=== PATIENT | female | born 1985 | race African-American/Black ===

== ENCOUNTER 2017-02-27 13:20 | Emergency (ER) | END 2017-02-27 20:09 | disposition home or self-care (01) ==

== ENCOUNTER 2017-10-13 23:05 | Emergency (ER) | END 2017-10-14 02:49 | disposition home or self-care (01) ==

== ENCOUNTER 2018-06-03 07:10 | Inpatient (IN) | payer OTHER ==
[~2018-06-03] VITALS: Ht 165.1 cm; Wt 60.0 kg
[~2018-06-03 07:10] MED LIST: EXCED PO; MECL12.574 PO; NAPR-985 PO
[2018-06-03 07:26] VITALS: Ht 165.1 cm; Wt 60.0 kg
[2018-06-03 07:28] VITALS: BP 119/76; PULSE 96; RESP 20
[2018-06-03] MEDS ORDERED: LACTATED RINGER'S 1,000 ML IV PRN (07:36)
--- NOTE | 2018-06-03 07:56 | TRIAGE ---
OB Triage Datetime Report Generated by CPN: 06/03/2018 07:56 Datetime: 06/03/2018 07:42 Stage of : OB Triage Maternal Assessment Level of Consciousness: Fully Conscious DTR's/Clonus: DTRs 2+ Headache: Denies Blurred Vision: No Nausea/Vomiting: Denies RUQ Epigastric Pain: Denies Facial Edema: None Labor Evaluation Frequency: 2-3 Monitor Mode: External Duration (sec)2399: 50-70 Quality: Mild Pattern: Normal: <= 5 Contractions in 10 Minutes Resting Tone [place]: Relaxed Heart Rate FHR Baseline Rate: 135 Monitor Mode: External US FHR Baseline Changes: No Baseline Change Variability: Moderate 6-25 bpm Accelerations: 15X15 Decelerations: None Category: Category I Pain Assessment Pain Scale: 4 Pain Presence: Intermittent Pain Type: Contraction Pain Location: Abdomen; Back Pain Goal: 5 Pain Relief Measures: Comfort Measures Membrane Status: Ruptured Membranes Rupture Method: Spontaneous Amniotic Fluid Color: Clear Amniotic Fluid Amount: Moderate Amniotic Fluid Odor: None Datetime: 06/03/2018 07:35 Comments: Dr. Spicer was informed of pt's arrival with c/o SROM since 0640 and uc's since 0600. VE 3-4/80/-2, keenan every 2-3 min. New order to adm pt to L_D on expected mtg, and to do an EF W and call him with the results. Datetime: 06/03/2018 07:24 Stage of : OB Triage Assessment Type: Triage Maternal Assessment Level of Consciousness: Fully Conscious DTR's/Clonus: DTRs 2+; No Clonus Headache: Denies Blurred Vision: No Respiratory Effort: Unlabored; Regular Rhythm; Equal Expansion Breath Sounds, Left: Clear and Equal Breath Sounds, Right: Clear and Equal Nausea/Vomiting: Denies RUQ Epigastric Pain: Denies Lower Extremities Edema: None Upper Extremities Edema: None Facial Edema: None Temperature Route: Axillary Fall Risk Assessment History of Falling: (0) No Secondary Diagnosis: (0) No Ambulatory Aid: (0) Bedrest/Nurse Assist IV Therapy: (0) No Gait: (0) Normal/Bedrest/Immobile Mental Status: (0) Oriented to Own Ability Fall Score: 0 Fall Risk Score Definition: No Risk: No action required Datetime: 06/03/2018 07:23 EGA: 39.1 Datetime: 06/03/2018 07:21 Vaginal Exam Dilatation (cms): 3.5 Effacement (%): 80 Station: -2 Exam By: Membrane Status: Ruptured Amniotic Fluid Color: Clear Amniotic Fluid Odor: None Datetime: 06/03/2018 07:10 Time of Arrival: 06/03/2018 07:10 Arrived By: Ambulatory Arrived From: Home Chief Complaint: UC'S and Leaking Movement: Present Contractions: Regular Time Contractions Began: 06/03/2018 06:00 Rupture of Membranes: Ruptured Vaginal Discharge: Present Recent Sexual Intercouse: Denies Abdominal Trauma: Not Applicable Patient Complaints: Contractions Initial Plan: NST, VE, EFW
[2018-06-03] MEDS ORDERED: CARBOPROST 250 MCG INJ IM PRN ×2 (08:00→12:30)
[2018-06-03] MEDS ORDERED: OXYTOCIN 30 UNITS/LR 500 ML IV PRN ×2 (08:00→12:30)
[2018-06-03] MEDS ORDERED: MISOPROSTOL 200 MCG TAB PR PRN ×2 (08:00→12:30)
[2018-06-03] MEDS ORDERED: BUTORPHANOL 2 MG INJ IV PRN (08:00)
[2018-06-03] MEDS ORDERED: LIDOCAINE 1% (MPF) 30 ML INJ INJ PRN (08:00)
[2018-06-03] MEDS ORDERED: IBUPROFEN 600 MG TAB PO PRN (08:00)
[2018-06-03] MEDS ORDERED: METHYLERGONOVINE 0.2 MG INJ IM PRN ×2 (08:00→12:30)
[2018-06-03] MEDS ORDERED: OXYTOCIN 30 UNITS/LR 500 ML IV SCH ×2 (08:00)
[2018-06-03] MEDS: LACTATED RINGER'S 1,000 ML IV SCH ×3 (08:22→11:35)
--- NOTE | 2018-06-03 08:45 | PREAC ---
Date/Time of Note Date/Time of Note DATE: 06/03/18 TIME: 08:44 Anesthesia Eval and Record Evaluation Time Pre-Procedure Interview DATE: 06/03/18 TIME: 08:44 Age 32 Sex female NPO: 8 hrs Preoperative diagnosis labor pain Planned procedure labor epidural Past Medical History Past Medical History: None Surgery & Anesthesia Issues No known issue Meds Anticoagulation: No Beta Brennan within 24 hr: No Reason Beta Brennan not given: Pt. not on B-Brennan Active Scripts Acetaminophen/Aspirin/Caffeine* (Excedrin*) 1 Tab Tab, 1 TAB PO Q6, #20 TAB Prov:LOGAN RUIZ PA-C 02/27/17 Meclizine Hcl* (Antivert*) 12.5 Mg Tab, 12.5 MG PO Q6H PRN for DIZZINESS, #20 TAB Prov:LOGAN RUIZC 02/27/17 Naproxen* (Naprosyn*) 500 Mg Tablet, 500 MG PO BID PRN for PAIN AND/OR INFLAMMATION, #30 TAB Prov:LOGAN RUIZC 02/27/17 Current Medications Lactated Ringer's 1,000 ml @ 125 mls/hr Q8H IV Last administered on 06/03/18at 08:22; Admin Dose 125 MLS/HR; Start 06/03/18 at 07:36 Butorphanol Tartrate (Stadol) 2 mg Q2H PRN IV .PAIN; Start 06/03/18 at 08:00 Lidocaine (Xylocaine 1% (Mpf)) 30 ml ONCE PRN INJ .EPISIOTOMY; Start 06/03/18 at 08:00 Oxytocin/Lactated Ringer's 500 ml @ 500 mls/hr ONCE POST IV ; Start 06/03/18 at 08:00 Oxytocin/Lactated Ringer's 500 ml @ 125 mls/hr POST IV ; Start 06/03/18 at 08:00 Ibuprofen (Motrin) 600 mg ONCE PRN PO .PAIN 1-5; Start 06/03/18 at 08:00 Lactated Ringer's 1,000 ml @ 2,000 mls/hr Q30M PRN IV .ANESTHESIA; Start 06/03/18 at 07:36 Oxytocin/Lactated Ringer's 500 ml @ 0 mls/hr ONCE PRN IV .VAGINAL BLEEDING; Start 06/03/18 at 08:00 Methylergonovine Maleate (Methergine) 0.2 mg ONCE PRN IM .VAGINAL BLEEDING; Start 06/03/18 at 08:00 Carboprost Tromethamine (Hemabate) 250 mcg ONCE PRN IM .VAGINAL BLEEDING; Start 06/03/18 at 08:00 Misoprostol (Cytotec) 1,000 mcg ONCE PRN [place] .VAGINAL BLEEDING; Start 06/03/18 at 08:00 Meds reviewed: Yes Allergies Coded Allergies: No Known Allergy (Unverified , 06/03/18) Allergies Reviewed: Yes Labs/Studies Labs Reviewed: Reviewed by anesthesiologist test: Positive Pre-procedure Exam Last vitals Vital Signs Date Temp Pulse Resp B/P (MAP) Pulse Ox O2 O2 Flow FiO2 Time Delivery Rate 06/03/18 97.6 96 20 119/76 Room Air 07:28 (90) Airway: Adequate mouth opening, Adequate thyromental dist Mallampati: Mallampati III Teeth: Normal Lung: Normal Heart: Normal ASA Physical Status ASA physical status: 2 Emergency: None Planned Anesthetic Neuraxial: Epidural Planned Pain Management Epidural, Parenteral pain med, Local by surgeon Pre-operative Attestations Prior to commencing anesthesia and surgery, the patient was re-evaluated, there was verification of: *The patient's identity *The results of appropriate recent lab work and preoperative vital signs *The above evaluation not changing prior to induction *Anesthetic plan, risk benefits, alternative and complications discussed with patient/family; questions answered; patient/family understands, accepts and wishes to proceed. LAURA CHAVEZ MD Jun 03, 2018 08:45
[2018-06-03] MEDS ORDERED: ONDANSETRON 4 MG INJ IV PRN ×2 (09:00→12:30)
[2018-06-03] MEDS ORDERED: NALOXONE (0.4 MG/ML) INJ IV PRN (09:00)
[2018-06-03] MEDS ORDERED: FENTAnyl 2MCG/ML-ROPIV 0.2% 100 ML BAG EPI SCH (09:00)
[2018-06-03] MEDS ORDERED: ZOLPIDEM 5 MG TAB PO PRN (09:00)
[2018-06-03] MEDS ORDERED: DIPHENHYDRAMINE 50 MG INJ IV PRN (09:00)
[2018-06-03] MEDS ORDERED: KETOROLAC 30 MG INJ IV PRN (09:00)
[2018-06-03] MEDS ORDERED: HYDROmorphONE 0.5 MG/0.5 ML SYG IV PRN ×2 (09:00)
--- NOTE | 2018-06-03 10:10 | PAC ---
Date/Time of Note Date/Time of Note DATE: 06/03/18 TIME: 10:10 Post-Anesthesia Notes Post-Anesthesia Note Last documented vital signs Vital Signs Date Temp Pulse Resp B/P (MAP) Pulse Ox O2 O2 Flow FiO2 Time Delivery Rate 06/03/18 97.6 96 20 119/76 Room Air 07:28 (90) Activity: WNL Respiratory function: WNL Cardiovascular function: WNL Mental status: Baseline Pain reasonably controlled: Yes Hydration appropriate: Yes Nausea/Vomiting absent: Yes LAURA CHAVEZ MD Jun 03, 2018 10:10
[2018-06-03] MEDS: OXYTOCIN 30 UNITS/LR 500 ML IV SCH ×2 (12:22→16:30)
--- NOTE | 2018-06-03 12:22 | LDN ---
Date/Time of Note Date/Time of Note DATE: 06/03/18 TIME: 12:21 Delivery Summary Weeks of Gestation 38 Placenta Delivered: Spontaneously Meconium: none Episiotomy: No Perineal laceration: 1 Laceration repair: 1st degree perineal laceration repair with 2-0 and 3-0 chromic Anesthesia type: Epidural Estimated blood loss: 200 Sponge & Needle done & correct: Yes All needle counts correct: Yes Any foreign bodies felt in the: No Infant Delivery Information Sex Infant Sex: female Apgars 1 Minute: 5 5 Minute: 8 Suctioning Nose & mouth suctioned at som: No Delee suction performed: No Umbilical Cord Umbilical cord with: 3 Vessels Cord presentations: nuchal cord Nuchal cord present X: 1 Cord Blood was obtained: Yes MEIR DIEGO MD Jun 03, 2018 12:22
[2018-06-03] MEDS ORDERED: NACL 0.9% 3 ML SYG IV SCH (12:30)
[2018-06-03] MEDS ORDERED: LANOLIN HPA 1 PKT TOP PRN (12:30)
[2018-06-03] MEDS ORDERED: OXYCODONE/ASPIRIN (4.88/325) TAB PO PRN ×2 (12:30)
[2018-06-03] MEDS ORDERED: BENZOCAINE 20% 56 ML SPRAY TOP PRN (12:30)
[2018-06-03] MEDS ORDERED: WITCH HAZEL/GLYCERIN PAD PR PRN (12:30)
--- NOTE | 2018-06-03 12:40 | PREOPHP ---
DATE OF ADMISSION: 06/03/2018 HISTORY OF PRESENT ILLNESS: Shanell Blanco is a 32-year-old 2, para 1, EDC 06/09/2018, intra uterine at term, presented to triage in labor. She reports of having regular contractions with spontaneous rupture of membranes. She declines any vaginal bleeding. Her care took pl [facility] at [facility]. PAST MEDICAL HISTORY: None. MEDICATIONS: vitamins. PAST SURGICAL HISTORY: None. OBSTETRICAL HISTORY: x1 vaginal delivery. GYNECOLOGIC HISTORY: 12, regular 3 to 4 days. Denies any sexually transmitted infections. Sexually active with 1 partner. SOCIAL HISTORY: Denies any smoking, drugs or alcohol. FAMILY HISTORY: None. REVIEW OF SYSTEMS: All within normal except history of present illness. PHYSICAL EXAMINATION: HEENT: Within normal. LUNGS: CTA bilateral. CARDIOVASCULAR: S1, S2, regular rhythm. ABDOMEN: Gravid, nontender. Negative CVA bilateral. EXTREMITIES: No calf tenderness. PELVIC: Vaginal exam on admission, 3 to 4 cm, 50%, -2 station, with spontaneous rupture of membranes . heart tracing category 1, toco regular contractions. ASSESSMENT: Intrauterine at term in labor. PLAN: Anticipated vaginal delivery. Dictated By: MEIR CRAWFORD/KAROLINA Conf#: [id number] DID#: [id number]
[2018-06-03 14:30] VITALS: BP 122/73; PULSE 80; RESP 18
[2018-06-03 16:00] VITALS: BP 115/77; PULSE 66; RESP 19
[2018-06-03] MEDS: IBUPROFEN 600 MG TAB PO SCH (17:31)
[2018-06-03 20:30] VITALS: BP 114/73; PULSE 68
[2018-06-03] MEDS: SENNA/DOCUSATE NA (8.6MG/50MG) TAB PO SCH (21:54)
[2018-06-04] MEDS: IBUPROFEN 600 MG TAB PO SCH ×5 (00:28→23:46)
[2018-06-04 04:00] VITALS: BP 112/72; PULSE 66; RESP 18
--- NOTE | 2018-06-04 07:42 | DS ---
Date/Time of Note Date/Time of Note DATE: 06/04/18 TIME: 07:41 Obstetrical Discharge Record Final Diagnosis Final Diagnosis: Term delivered Vaginal Delivery Obstetrical Delivery: Spontaneous, Laceration, Repaired Condition on Discharge Physical Assessment Last Vitals: stable afebrile Voiding: Yes Bowel Movement: Yes Breast: Soft, non-tender, Filling Fundus: Firm Abdomen and Incision: soft nt Calf Tenderness: No Patient Condition: Fair MEIR DIEGO MD Jun 04, 2018 07:42
--- NOTE | 2018-06-04 07:42 | PD.PPDC ---
MDM SR Discharge Instruction Condition [id number] Patient Condition: Vydnf2y Fair Diet [id number] Diet: Yxwop7h Resume Regular Diet Activity/Restrictions [id number] Activity: [id number] Normal Activity May Shower Follow-up Follow-up with Physician: 3, Week/Weeks Return to clinic for [id number] LIBRARY CLERK TALKING BOOKS Instructions: Iuluc7f Fever greater than 101 Chills Worsening abdominal pain Excessive Vaginal Bleeding More than 2 pads per hour Unable to tolerate diet [id number] OB Instructions: Vohww1g Breast Tenderness Depression Blurried Vision Headache Sjqho1Di Surgical Instructions: Fughj6h Incisional Drainage Incisional Redness MEIR DIEGO MD Jun 04, 2018 07:42
[2018-06-04 07:45] VITALS: BP 99/77; PULSE 87; RESP 19
[2018-06-04] MEDS: SENNA/DOCUSATE NA (8.6MG/50MG) TAB PO SCH ×2 (11:58→22:06)
[2018-06-04 16:00] VITALS: BP 103/63; PULSE 72; RESP 18
[2018-06-04 20:15] VITALS: BP 102/57; PULSE 75; RESP 19
[2018-06-05 04:00] VITALS: BP 116/60; PULSE 57; RESP 19
[2018-06-05] MEDS: IBUPROFEN 600 MG TAB PO SCH ×2 (05:44→12:00)
[2018-06-05 08:30] VITALS: BP 110/68; PULSE 81; RESP 18
[2018-06-05] MEDS: SENNA/DOCUSATE NA (8.6MG/50MG) TAB PO SCH (10:20)
--- NOTE | 2018-06-06 14:43 | DELSUM ---
Delivery Summary A-C Datetime Report Generated by CPN: 06/06/2018 14:43 DELIVERY PERSONNEL Jig Grinder: Khemani, Ryann MATERNAL INFORMATION Delivery Anesthesia: Epidural Medications in Delivery: LR W/ 30 UNITS PITOCIN Delivery QBL (ml): 367 Placenta Cultured: No Maternal Complications: None LABOR SUMMARY EDC: 06/09/2018 00:00 No. Babies in Womb: 1 Attempted: No Labor Anesthesia: Epidural LABOR INFORMATION Reason for Induction: Not Applicable Onset of Labor: 06/03/2018 06:40 Complete Dilatation: 06/03/2018 11:30 Oxytocin: N/A Group B Beta Strep: Negative Antibiotics # of Doses: 0 Steroids Given: None Reason Steroids Not Administered: Not Applicable MEMBRANES Membranes Rupture Method: Spontaneous Rupture of Membranes: 06/03/2018 06:40 Length of Rupture (hr): 5.40 Amniotic Fluid Color: Clear Amniotic Fluid Amount: Moderate Amniotic Fluid Odor: None STAGES OF LABOR Stage 1 hr: 4 Stage 1 min: 50 Stage 2 hr: 0 Stage 2 min: 34 Stage 3 hr: 0 Stage 3 min: 2 Total Time in Labor hr: 5 Total Time in Labor min: 26 VAGINAL DELIVERY Episiotomy: None Laceration Extension: First Degree Laceration Type: Perineal Laceration Repair: Yes Initial Vag Sponge Count: 10 Final Vag Sponge Count: 10 Initial Vag Sharps Count: 1 Final Vag Sharps Count: 1 Sponge Count Correct: Yes; Vaginal Sweep Performed Sharps Count Correct: Yes BABY A INFORMATION Infant Delivery Date/Time: 06/03/2018 12:04 Method of Delivery: Vaginal Born in Route : No : N/A Forceps: N/A Vacuum Extraction: N/A Shoulder Dystocia : No SHOULDER DYSTOCIA BABY A Infant Delivery Date/Time: 06/03/2018 12:04 PRESENTATION/POSITION BABY A Presentation: Cephalic Cephalic Presentation: Vertex Breech Presentation: N/A PLACENTA INFORMATION BABY A Placenta Delivery Time : 06/03/2018 12:06 Placenta Method of Delivery: Spontaneous Placenta Status: Delivered SCORES BABY A Heart Rate 1 min: >100 bpm Resp Effort 1 min: Slow, Irregular Reflex Irritability 1 min: Grimace Muscle Tone 1 min: Some Flexion of Extrem Color 1 min: Blue/Pale Resuscitation Effort 1 min: Tactile Stimulation; Oxygen; PPV/NCPAP SCORE 1 MIN: 5 Heart Rate 5 min: >100 bpm Resp Effort 5 min: Good Cry Reflex Irritability 5 min: Cough/Sneeze/Pulls Away Muscle Tone 5 min: Active Motion Color 5 min: Blue/Pale Resuscitation Effort 5 min: Tactile Stimulation SCORE 5 MIN: 8 Heart Rate 10 min: >100 bpm Resp Effort 10 min: Good Cry Reflex Irritability 10 min: Cough/Sneeze/Pulls Away Muscle Tone 10 min: Active Motion Color 10 min: Body [place], Extremit Blue Resuscitation Effort 10 min: Tactile Stimulation SCORE 10 MIN: 9 INFANT INFORMATION BABY A Gestational Age at Delivery: 39.1 Gestational Status: Full Term- 39- 40.6 Weeks Outcome : Liveborn Infant Condition : Stable Sex: Female IDENTIFICATION/MEDS BABY A ID Band Number: [id number] ID Band Location: Right Leg; Left Arm Sensor Applied: Yes Sensor Number: [id number] Sensor Location : Cord Clamp Vitamin K Given : Not Given Erythromycin Given: Not Given WEIGHT/LENGTH BABY A Birthweight (gm): 3895 Weight (lb): 8 Infant Weight (oz): 9 Infant Length (in): 21.00 Length (cm): 53.34 CORD INFORMATION BABY A No. Cord Vessels: 3 Nuchal Cord : Around Neck x1, Tight Infant Cord pH Baby Arterial: 7.18 Infant Cord pH Baby Venous: 7.00 Cord Blood Taken: Yes Suction: Mouth; Nose ASSESSMENT BABY A Complications: None Physical Findings at Delivery: Extra Digit(s) Physical Findings- Other: EXTRA DIGITS ON BLUE Infant Respirations: Appears Normal Quality Control Tester/ALS Called : Yes Transferred To: Remains with Mother
== END 2018-06-05 12:50 | disposition home or self-care (01) | DRG 807 ==
LOC: L-D 07:10 → OBT 07:10 → L-D 07:48 → PP1 14:32
PROVIDERS: ADMIT Obstetrics & Gynecology; ATTEND Obstetrics & Gynecology
PROC: 10E0XZZ Delivery of Products of Conception, External Approach (ICD-10-PCS; principal; 2018-06-03)
PROC: 0HQ9XZZ Repair Perineum Skin, External Approach (ICD-10-PCS; 2018-06-03)
PROC: 4A1HXCZ Monitoring of Products of Conception, Cardiac Rate, External Approach (ICD-10-PCS; 2018-06-03)
DX: O70.0 First degree perineal laceration during delivery (principal); Z37.0 Single live birth; O69.1XX0 Labor and delivery complicated by cord around neck, with compression, not applicable or unspecified; Z3A.38 38 weeks gestation of pregnancy
CPT/HCPCS: 36415; 36600; 76815; 82803; 85025; 85610; 85730; 86592; 86850; 86900; 86901; 87340; G0463; J2590; J3010; J7120